=== PATIENT | female | born 1960 | race Caucasian/White ===

== ENCOUNTER 2018-07-21 15:26 | Inpatient (IN) | payer OTHER, BC ==
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
[2018-07-21 15:59] LABS: PLATELET COUNT 214 10^3/uL (150-400)
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
--- NOTE | 2018-07-21 17:57 | ASMTTCLDSP ---
[facility] Discharge Disposition Disposition: Answers: Admit Discharge Concerns/Recommendations: Notes: In consultation with [facility] ED physician, Oni Tolentino MD and on-call psychiatrist, Hemal Clay MD, both concurred that pt appears to meet 27-65 criteria requiring psychiatric hospitalization as pt appears to be at risk of harm to self/others due to a mental illness condition. Pt was given the 3N prohibited belongings list while in the ED. Was patient given the Answers: Yes Inpatient Behavioral Health Prohibited Belongings List while in the ED? For inpatient Hemal Clay MD admission, the following psychiatrist agreed to accept patient for admission to Behavioral Health ([facility]): Date Signed: 07/21/2018 05:56 PM Electronically Signed By:Nuzhat Bear
[2018-07-21] MEDS ORDERED: LORazepam 1 MG TAB PO ONE (18:13)
[2018-07-21] MEDS ORDERED: NICOTINE POLACRILEX 2 MG GUM B ONE ×2 (20:00→20:58)
[2018-07-21] MEDS ORDERED: ACETAMINOPHEN 325 MG TAB PO PRN (20:51)
[2018-07-21] MEDS ORDERED: MAG HYDROX/AL HYDROX/SIMETH 30 ML UDCUP PO PRN (20:52)
[2018-07-21] MEDS ORDERED: MAGNESIUM HYDROXIDE 30 ML UDCUP PO PRN (20:52)
[2018-07-21] MEDS ORDERED: chlordiazePOXIDE 25 MG CAP PO PRN (20:54)
[2018-07-21] MEDS: ASPIRIN EC 81 MG TAB PO SCH (20:56)
[2018-07-21] MEDS: clonazePAM 1 MG TAB PO SCH (20:57)
[2018-07-21] MEDS: OLANZapine DISINTEGR 10 MG TAB PO PRN (20:57)
[2018-07-22] MEDS: LORazepam 0.5 MG TAB PO PRN ×2 (02:01→09:52)
[2018-07-22] MEDS: NICOTINE 21 MG/24 HR PATCH TD SCH (07:12)
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
[2018-07-22] MEDS: OLANZapine DISINTEGR 10 MG TAB PO PRN (09:52)
--- NOTE | 2018-07-22 11:13 | ASMTCMCOM ---
CM Note CM Note Notes: CC sent off referral information to [facility] ; requesting follow up appts for client for early next week. Waiting to hear back.* Date Signed: 07/22/2018 11:12 AM Electronically Signed By:Gaurav Belcher
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
--- NOTE | 2018-07-22 12:56 | PDMN ---
Medical Necessity Medical necessity: [facility] [id number] Other psychotic d/o, adult, IP care: 57 yo w/ unspecified pyschosis, PTSD, r/o schizoaffective d/o, homeless, on M1 hold risk of harm to others and gravely disabled.
[2018-07-22] MEDS ORDERED: NICOTINE POLACRILEX 2 MG GUM B ONE (15:09)
[2018-07-22] MEDS: NICOTINE POLACRILEX 2 MG GUM B PRN ×3 (15:38→20:25)
[2018-07-22] MEDS: OLANZapine DISINTEGR 10 MG TAB PO SCH (21:14)
[2018-07-22] MEDS: ASPIRIN EC 81 MG TAB PO SCH (21:14)
[2018-07-22] MEDS: clonazePAM 1 MG TAB PO SCH (21:14)
[2018-07-23] MEDS: NICOTINE POLACRILEX 2 MG GUM B PRN ×8 (01:34→17:24)
[2018-07-23] MEDS: NICOTINE 21 MG/24 HR PATCH TD SCH (08:29)
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
[2018-07-23] MEDS: OLANZapine DISINTEGR 10 MG TAB PO SCH (20:25)
[2018-07-23] MEDS: clonazePAM 1 MG TAB PO SCH (20:26)
[2018-07-23] MEDS: ASPIRIN EC 81 MG TAB PO SCH (20:26)
[2018-07-23] MEDS: OLANZapine DISINTEGR 10 MG TAB PO PRN (20:51)
[2018-07-24] MEDS: NICOTINE POLACRILEX 2 MG GUM B PRN ×9 (01:55→19:19)
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
[2018-07-24] MEDS: NICOTINE 21 MG/24 HR PATCH TD SCH (08:21)
--- NOTE | 2018-07-24 12:32 | ASMTBHDC ---
Notes Note: Notes: Pt. reports getting 4-5 hours of sleep last night, and requested to get visceral or increase her klonopin. Pt. stated "1 mg is not cutting it". Pt. stated she has nightmares when she drifts off. Pt. stated she is "eating real good", adding she is not having diarrhea anymore. Pt. stated she would like to show the MD and CC the photos of who has been following her lately. Pt. stated she has "gone to all" of the groups. Pt. reported no issues with her medications, other than needing more to sleep. Pt. stated she connected with a peer pt, adding "may room together". Pt. stated she and peer pt are thinking of getting an apartment in either "[facility] or [facility] together". Pt. stated "[I] think he is a Godsend", and "given me tons of hope". Pt. stated she feels safe living with a male and stated "so excited I can hardly stand it". Pt. stated she needs to discharge so she is able to sublet her apartment and find a new one. Pt. stated she was "defensive when I first got here", and "been in the best mood in the past 20 years". Pt. denied SI, HI, AVH and paranoia. Pt. presents as alert, mostly calm, grandiose, delusional, good eye contact, and cooperative. Staff report pt. sleeping 5 hours and being medication compliant. Date Signed: 07/24/2018 12:31 PM Electronically Signed By:Noreen Celeste
[2018-07-24] MEDS: OLANZapine 10 MG TAB PO SCH (20:14)
[2018-07-24] MEDS: clonazePAM 1 MG TAB PO SCH (20:14)
[2018-07-24] MEDS: ASPIRIN EC 81 MG TAB PO SCH (20:15)
[2018-07-24] MEDS ORDERED: OLANZapine 10 MG TAB PO SCH (21:00)
[2018-07-25] MEDS: NICOTINE POLACRILEX 2 MG GUM B PRN ×10 (01:45→20:14)
[2018-07-25] MEDS: NICOTINE 21 MG/24 HR PATCH TD SCH (07:32)
--- NOTE | 2018-07-25 08:23 | SOAPPROG ---
SOAP Progress Note Assessment/Plan: Assessment: Unspecified Psychosis. R/O Delusional Disorder, R/O Schizophrenia, R/O Schizoaffective Disorder. No improvement noted. (see subjective/objective note) . Patient is not safe to discharge at this time as patient continues to exhibit signs of psychosis. Patient requires continued inpatient care because of current psychosis, and requires inpatient level of care to stabilize in order to no longer be gravely disabled due to mental illness; loss of reality testing. Patient could benefit from continued inpatient hospitalization for crisis stabilization, safety, and medication evaluation. Patient has no insight into current condition, severely poor judgment due to delusions, and is unable to communicate her basic needs and attend to ADLs independently. Plan: 1. Psychotropic medications: After reviewing options, risks, and benefits patient agrees to continue current medications. No medication changes at this time as more time is needed to determine ongoing tolerability and efficacy. Plan is to continue to observe patient for response and side effects from medications, and ongoing monitoring and evaluation. 2. Review with patient informed consent and recommendations for psychotropic medication treatment listed below 3. Labs: no additional labs at this time 4. Therapy: continue milieu and group therapy 5. Further investigation including gathering information from patients relatives and review of past case records to inform treatment plan. 6. Safety/Wellness plan and follow-up outpatient appointments to be established prior to discharge. Next steps are for patient to meet with home care scheduler to plan a safe discharge plan and establish outpatient services for ongoing treatment. 7. Confer with inpatient treatment team regarding treatment plan. 8. Psychosocial stressors addressed through case management. 9. Legal status: [facility] 10. Consider discharge end of the week if patient is in stable condition, safe, and has a safe discharge plan. PSYCHOTROPIC MEDICATION TREATMENT INFORMED CONSENT and RECOMMENDATIONS: Review nature of condition, diagnosis, and prognosis. Review nature and purpose of psychotropic medication treatment. Review type of psychotropic medications being ordered. Review risk and benefits of psychotropic medication treatment. Review probable length of time patient will need to take medications. Review risk and benefits of not undergoing psychotropic medication treatment. Review alternative treatments to psychotropic medications. Review psychotropic medications contraindications, drug-drug interactions, side effects, and importance of reporting any side effects to a psychiatric provider or nurse during inpatient hospitalization, and upon discharge to patients psychiatric outpatient provider, primary care provider, or other health customer care coordinator. Review importance of asking a nurse, psychiatric provider, or primary care provider any questions or problems concerning the psychotropic medications. Verify patient understands the information that has been provided, and understands, accepts, and agrees to psychotropic medications. Review patients safety plan and importance of patient to report to staff while hospitalized if patient is ever a danger to self/others, or unable to care for self, and upon discharge, the importance for patient to contact [facility] or [facility], or go to the nearest emergency room, if patient is ever a danger to self/others, or unable to care for self. Recommend that upon discharge patient establish medication management treatment with a psychiatric provider, establishes routine therapy appointments, and follow-up with primary care provider. Verify patient understands and agrees to these recommendations. 07/25/18 08:24 Subjective: Following up with patient for evaluation of psychosis and safety. Patient reports, "I am feeling okay, can I get my Klonopin increased? Did you know that my family is famous? I left a personal story in my chart for the staff to read. The story is about how I am being followed the [facility], I always have to be watching my back because I am being followed. I was dating a rachel that was in the mafia." Patient expresses the following psychiatric symptoms delusions. Patient reports taking medications as prescribed, and describes response to medications as fair. Patient does not report undesirable side effects from the medications, and agrees to continue current medications. Patient reports she slept 8 hours last night, and reports she feels rested today. Patient reports plans to stay in [place] after discharging from hospital, and reports she has outpatient psychiatric services established in [place], [place]. Objective: Vital Signs Temp Pulse Resp BP Pulse Ox 36.4 C 96 16 121/67 H 93 07/25/18 00:30 07/25/18 00:30 07/25/18 00:30 07/25/18 00:30 07/25/18 00:30 NURSING REPORT: Consulted with nursing for update on patients progress in treatment. Nurses report patient is engaged in treatment, is attending groups, slept 9 hours, expresses the following psychiatric symptoms: delusions, exhibits the following psychiatric symptoms: reports delusions; is eating all meals, is agreeable to medications and taking as prescribed with no report of side effects, with no s/s of EPS/akathisia, and denies SI/HI, denies A/V hallucinations, and denies delusions. Nurses and case management reports patient has no insight and poor judgement, has poor discharge plan, and is unable to communicate basic needs due to inability to test reality and requires prompting and direction from staff for ADLs. PATTERNMAKER HAND UPDATE: referrals and appointments for outpatient services in [place], [place]. MSE: The patient presents casually dressed and with good hygiene, and looks older than stated age. Patient is sitting, posture is upright, and position is relaxed. Patient appears awake, alert, and responds appropriately and reasonably during interview. Patient is engaged, relates well to interviewer, and emotional facial expression is appropriate to situation and changes appropriately with topic. Patient is cooperative, makes comfortable eye contact , and movements are voluntary, deliberate, coordinated, and smooth and even with no inappropriate movements. Speech rate is fluent, hesitant at times, and volume is appropriate. Patient reports mood as okay. Patients affect is flat with constricted range, incongruent with mood, and inappropriate to speech and circumstances. Patient has non-linear and illogical thinking; unable to test reality and judgment and insight significantly affected by current delusions. Patient denies suicidal and denies homicidal ideation, and denies hallucinations and reports delusions. Patient appears to be a poor historian with poor judgement and poor insight into current condition. - Time Spent With Patient Time Spent With Patient: 15 minutes, met with patient individually. - Pending Discharge Pending Discharge Within 24 Hours: No Pending Discharge Within 48 Hours: No ICD10 Worksheet Patient Problems: Problems Problem Status Onset Schizoaffective disorder Acute
--- NOTE | 2018-07-25 13:39 | ASMTBHDC ---
Notes Note: Notes: CC checked in with ct. Ct. reported that she is doing OK. She said that she would like to discharge no later then Wed. as she has to get her car out of a parking lot. Ct. has an appointment with her provider in [place] scheduled for 08/04/18. Expected discharge date will be discussed tomorrow during rounds. Date Signed: 07/25/2018 01:38 PM Electronically Signed By:Mai Christensen
[2018-07-25] MEDS: ASPIRIN EC 81 MG TAB PO SCH (20:14)
[2018-07-25] MEDS: clonazePAM 1 MG TAB PO SCH (20:14)
[2018-07-25] MEDS: OLANZapine 10 MG TAB PO SCH (20:14)
[2018-07-26] MEDS: NICOTINE POLACRILEX 2 MG GUM B PRN ×8 (04:09→18:00)
[2018-07-26] MEDS: NICOTINE 21 MG/24 HR PATCH TD SCH (08:39)
[2018-07-26] MEDS ORDERED: clonazePAM 0.5 MG TAB PO SCH (08:42)
--- NOTE | 2018-07-26 09:05 | SOAPPROG ---
SOAP Progress Note Assessment/Plan: Assessment: Schizoaffective Disorder, paranoid delusions; PTSD. Improvement noted, patient reports no delusions today. (see subjective/objective note). Patient could benefit from continued inpatient hospitalization for crisis stabilization, safety, and medication evaluation. Patient likely reaching baseline, plan to discharge tomorrow. Plan: 1. Psychotropic medications: After reviewing options, risks, and benefits patient agrees to continue current medications. No medication changes at this time as more time is needed to determine ongoing tolerability and efficacy. Plan is to continue to observe patient for response and side effects from medications, and ongoing monitoring and evaluation. 2. Review with patient informed consent and recommendations for psychotropic medication treatment listed below 3. Labs: no additional labs at this time 4. Therapy: continue milieu and group therapy 5. Further investigation including gathering information from patients relatives and review of past case records to inform treatment plan. 6. Safety/Wellness plan and follow-up outpatient appointments to be established prior to discharge. Next steps are for patient to meet with care companion to plan a safe discharge plan and establish outpatient services for ongoing treatment. 7. Confer with inpatient treatment team regarding treatment plan. 8. Psychosocial stressors addressed through case management. 9. Legal status: [facility] 10. Consider discharge Wednesday if patient is in stable condition, safe, and has a safe discharge plan. PSYCHOTROPIC MEDICATION TREATMENT INFORMED CONSENT and RECOMMENDATIONS: Review nature of condition, diagnosis, and prognosis. Review nature and purpose of psychotropic medication treatment. Review type of psychotropic medications being ordered. Review risk and benefits of psychotropic medication treatment. Review probable length of time patient will need to take medications. Review risk and benefits of not undergoing psychotropic medication treatment. Review alternative treatments to psychotropic medications. Review psychotropic medications contraindications, drug-drug interactions, side effects, and importance of reporting any side effects to a psychiatric provider or nurse during inpatient hospitalization, and upon discharge to patients psychiatric outpatient provider, primary care provider, or other health memory care director. Review importance of asking a nurse, psychiatric provider, or primary care provider any questions or problems concerning the psychotropic medications. Verify patient understands the information that has been provided, and understands, accepts, and agrees to psychotropic medications. Review patients safety plan and importance of patient to report to staff while hospitalized if patient is ever a danger to self/others, or unable to care for self, and upon discharge, the importance for patient to contact [facility] or [facility], or go to the nearest emergency room, if patient is ever a danger to self/others, or unable to care for self. Recommend that upon discharge patient establish medication management treatment with a psychiatric provider, establishes routine therapy appointments, and follow-up with primary care provider. Verify patient understands and agrees to these recommendations. 07/26/18 09:14 Subjective: Following up with patient for evaluation of depression, petrona, and safety. Patient reports, "Best hospital stay I have ever had, doing better than ever." Patient reports she does not feel like she is being followed anymore as upon admission patient reported paranoid delusions of being followed by jade. Patient denies paranoid delusions she was reporting at time of admission. Patient expresses no psychiatric symptoms. Patient reports taking medications as prescribed, and describes response to medications as fair. Patient does not report undesirable side effects from the medications, and agrees to continue current medications. Discuss tapering Klonopin to eventually discontinue due to long-term side effects. Patient states, Yes, that is a good idea, I do not want to get hooked on it. Patient agrees to lower dose to 0.75 mg and a prescription to taper and discontinue after discharge. Patient reports she slept 7 hours last night, and reports she feels rested today. Patient reports improved sleep since admission. Patient reports plans to stay in [place] after discharging from hospital. Objective: Vital Signs Temp Pulse Resp BP Pulse Ox 36.6 C 81 16 124/68 H 94 07/26/18 06:23 07/26/18 06:23 07/26/18 06:23 07/26/18 06:23 07/26/18 06:23 NURSING REPORT: Consulted with nursing for update on patients progress in treatment. Nurses report patient is engaged in treatment, is attending groups, slept 7 hours, expresses the following psychiatric symptoms: none, exhibits the following psychiatric symptoms: none; is eating all meals, is agreeable to medications and taking as prescribed with no report of side effects, with no s/ s of EPS/akathisia, and denies SI/HI, denies A/V hallucinations, and denies delusions. FITTER/WELDER UPDATE: referrals and appointments for outpatient services in [place], [place]. MSE: The patient presents casually dressed and with good hygiene, and looks stated age. Patient is sitting, posture is upright, and position is relaxed. Patient appears awake, alert, and responds appropriately and reasonably during interview. Patient is engaged, relates well to interviewer, and emotional facial expression is appropriate to situation and changes appropriately with topic. Patient is cooperative, makes comfortable eye contact, and movements are voluntary, deliberate, coordinated, and smooth and even with no inappropriate movements. Speech rate is fluent, hesitant at times, and volume is appropriate. Patient reports mood as okay. Patients affect is flat with constricted range, incongruent with mood, and inappropriate to speech and circumstances. Patient has linear and illogical thinking. Patient denies suicidal and denies homicidal ideation, and denies hallucinations and denies delusions. Patient appears to be a poor historian with poor judgement and poor insight into current condition. - Time Spent With Patient Time Spent With Patient: 15 minutes, met with patient individually. - Pending Discharge Pending Discharge Within 24 Hours: Yes Pending Discharge Within 48 Hours: No Pending Discharge Date: 07/27/18 Pending Discharge Time: 11:00 ICD10 Worksheet Patient Problems: Problems Problem Status Onset Schizoaffective disorder Acute
--- NOTE | 2018-07-26 10:59 | ASMTCMCOM ---
CM Note CM Note Notes: Client has follow up out-patient appts set, CC will provide regional bus ticket for client, set to discharge tomorrow.* Date Signed: 07/26/2018 10:58 AM Electronically Signed By:Gaurav Belcher
[2018-07-26] MEDS: ASPIRIN EC 81 MG TAB PO SCH (19:18)
[2018-07-26] MEDS: OLANZapine 10 MG TAB PO SCH (19:18)
[2018-07-27] MEDS: NICOTINE POLACRILEX 2 MG GUM B PRN ×3 (01:03→06:19)
[2018-07-27 06:39] VITALS: BP 122/64
[2018-07-27] MEDS: NICOTINE 21 MG/24 HR PATCH TD SCH (08:26)
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
== END 2018-07-27 08:50 | disposition home or self-care (01) | DRG 885 ==
LOC: BBEH 19:20
PROVIDERS: ADMIT Psychiatry & Neurology Psychiatry; ATTEND Registered Nurse
DX: F25.0 Schizoaffective disorder, bipolar type (principal); E78.5 Hyperlipidemia, unspecified; E03.9 Hypothyroidism, unspecified; F17.200 Nicotine dependence, unspecified, uncomplicated; M25.512 Pain in left shoulder; Z59.0 Homelessness
CPT/HCPCS: 80305; G0480